=== PATIENT | female | born 1945 | race Caucasian/White ===

== ENCOUNTER 2018-03-03 17:13 | Emergency (ER) | payer OTHER ==
[2018-03-03] MEDS ORDERED: ALTEPLASE 100 MG/100 ML VIAL IV ONE ×2 (17:16→17:27)
[2018-03-03] MEDS ORDERED: NS 500 ML IV ONE ×2 (17:17→18:06)
--- NOTE | 2018-03-03 17:21 | EDPHY ---
H & P Time Seen by Provider: 03/03/18 17:15 HPI/ROS: HPI Stroke alert. 72-year-old female by ambulance. This patient was running/exercising at 4:50 p.m.. Bystanders noticed that she suddenly now down on her right side. She was complaining of weakness to her left side. EMS was called. On EMS arrival they noted complete hemiparesis left-sided both upper lower extremity with left- sided facial droop and left-sided neglect. Blood sugar per EMS was 112. Blood pressure 140's systolic. On arrival to the emergency department on initial narrow assessment, complete left-sided hemiparesis noted with left-sided facial droop and left-sided neglect. Airway stable. She was sent immediately for CT imaging of the brain. ROS: Constitutional: No fever, no chills. No weakness. Eyes: No discharge. No changes in vision. ENT: No sore throat. No nasal congestion or rhinorrhea. Respiratory: No cough. No shortness of breath. Cardiac: No chest pain, no palpitations. Gastrointestinal: No abdominal pain, no vomiting, no diarrhea. Genitourinary: No hematuria. No dysuria or increased frequency with urination. Musculoskeletal: No back pain. No neck pain. No myalgias or arthralgias. Skin: No rashes. Neurological: No headache. As above. Past medical history: Hypertension for which she takes lisinopril. 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 Social history: Nonsmoker. No alcohol. Here by herself. She has a daughter who lives nearby [facility]. Physical Exam: General Appearance: Eyes closed but open to voice. This patient is responding to questions appropriately but with slurred speech. This patient appears well- hydrated and well-nourished. Eyes: Pupils equal and round, small at 2 mm reactive to 1 mm, no pallor or injection. No lid edema, erythema or injection. ENT, Mouth: Mucous membranes are moist. The pharyngeal tissues are unremarkable. No edema or swelling. No asymmetry suggestive of abscess. No erythema or exudates. No tongue lacerations or abrasions. Respiratory: There are no retractions, lungs are clear to auscultation with good air movement bilaterally. Cardiovascular: Regular rate and rhythm. No murmur. Gastrointestinal: Abdomen is soft and nontender, no masses, bowel sounds normal. No focal tenderness at McBurney's point. No Chin sign. Neurological: Initial neurologic Assessment. GCS of 14. Complete left-sided hemiparesis and sensory loss with left-sided lower facial droop. Dysarthric speech. Skin: Warm and dry, no rashes. Musculoskeletal: Neck is supple and nontender. Extremities are symmetrical. All joints range without apparent pain or impingement. Psychiatric: No agitation. No depression. Database: EKG: EKG time is 5:40 p.m.; EKG shows a narrow complex normal sinus rhythm with a ventricular rate of 100. Subtle ST depressions in 2 3, AVF and V4 through V6. The MD, QRS, QT intervals are within normal limits. There are no ST-T wave changes indicative of ischemic or injury pattern. No evidence of right heart strain. Interpreted by me. Imaging: CT scan of head without contrast: Significant for junctional density at M2-M3. No bleed. Results discussed with staff radiologist Dr. Denzel boone. CT angiogram of head neck: As above. Results discussed with staff radiologist Dr. Denzel Boone. Chest x-ray AP portable; the cardiac mediastinal silhouette is unremarkable. No evidence of infiltrate or pneumothorax. No acute cardiopulmonary disease process noted. Interpreted by me. Procedures: Emergency department course: Immediately after initial assessment in the hallway the patient was sent for CT imaging as above. I-STAT obtained with normal creatinine. Systolic blood pressure in the 140s. Pulse oximetry mid 90s on room air oxygen. Secondary to initial findings on noncontrast CT a CT angiogram was obtained immediately following this study while the patient was still in the CT suite. Spoke with [facility] neurologist Dr. Lyn, initial history discussed. 5:20 p.m., patient back in room [address] emergency department[address] Dr. Lyn present remotely. Repeat neurologic Assessment she has some improvement in motor function of the left lower extremity. Neurologic Assessment is otherwise unchanged from above. After Dr. Lyn's initial evaluation and discussion of CT imaging, patient assess for tPA administration. No contraindications. Risks of giving medication discussed with her understanding. Patient started on tPA at 5:[address] Lyn recommended transfer to [facility] for further management and possible IR intervention. 6:00 p.m., air crew present at the bedside. Patient to be flown to [facility] shortly. Differential Diagnosis: The differential diagnosis on this patient includes but is not limited to acute right-sided thrombotic stroke with left-sided hemiparesis. Seizure, Jhon's paralysis, hemorrhagic stroke unlikely. This represents a partial list of diagnoses considered. These considerations are based on history, physical exam , past history, reassessment and diagnostic testing. Smoking Status: Never smoked Constitutional: Initial Vital Signs Temperature (C) 37.0 C 03/03/18 17:15 Heart Rate 100 03/03/18 17:15 Respiratory Rate 18 03/03/18 17:15 Blood Pressure 157/112 H 03/03/18 17:15 O2 Sat (%) 96 03/03/18 17:15 O2 Delivery Mode Room Air O2 (L/minute) 2 Allergies/Adverse Reactions: orange juice [oranges] Allergy (Verified 09/11/16 10:39) Home Medications: Medication Instructions Recorded Lisinopril [Zestril 10 mg (RX)] 10 mg PO DAILY 06/12/14 oxyCODONE/APAP 5/325 [Percocet 1 - 2 tab PO Q6-8PRN PRN #20 tab 06/12/14 5/325 (RX)] Aspirin 09/11/16 Medical Decision Making Critical Care Time: Emergency department critical care 47 minutes this time is exclusive of separately billable procedures time includes direct patient care, patient reassessment, coordination of patient care, interpretation of data, review of medical records, medical consultation, consultation with family and documentation of patient care. - Data Points Laboratory Results: Laboratory Results 03/03/18 17:15 03/03/18 17:17 03/03/18 17:18 POC Hgb 14.6 gm/dL gm/dL (12.6-16.3) POC Hct 43 % % (38-47) POC Sodium 144 mEq/L mEq/L (135-145) POC Potassium 4.3 mEq/L mEq/L (3.3-5.0) POC Chloride 109 mEq/L mEq/L (97-110) POC BUN 22 mg/dL mg/dL (7-23) POC Creatinine 1.0 mg/dL mg/dL (0.6-1.0) POC Glucose 101 mg/dL H mg/dL (70-100) Medications Given: Discontinued Medications Alteplase, Recombinant (Activase) 5.292 mg 0.09 mg/kg (5.292 mg) IV ONCE ONE PRN Reason: Protocol Stop: 03/03/18 17:28 Last Admin: 03/03/18 17:40 Dose: 5.292 mg Alteplase, Recombinant (Activase) 47.628 mg 0.81 mg/kg (47.628 mg) IV ONCE ONE PRN Reason: Protocol Stop: 03/03/18 17:28 Last Admin: 03/03/18 17:40 Dose: 47.628 mg Sodium Chloride (Ns) 500 mls @ 500 mls/hr IV EDNOW ONE PRN Reason: Protocol Stop: 03/03/18 18:16 Last Admin: 03/03/18 17:40 Dose: 500 mls Sodium Chloride (Ns) 500 mls @ 1,500 mls/hr IV ONCE ONE Stop: 03/03/18 18:25 Last Admin: 03/03/18 17:40 Dose: 500 mls Point of Care Test Results: 03/03/18 17:18 POC Sodium 144 POC Potassium 4.3 POC Chloride 109 POC BUN 22 POC Creatinine 1.0 POC Glucose 101 H Departure - Departure Disposition: Acute Care Hospital Not [facility] Clinical Impression: Acute ischemic stroke Referrals: Patient,NotPresent [Unknown] - As per Instructions
[2018-03-03] MEDS ORDERED: NS 50 ML IV ONE (17:27)
[2018-03-03] MEDS ORDERED: ALTEPLASE 1 MG/ML SYR IV ONE (17:27)
[2018-03-03 17:30] LABS: PLATELET COUNT 333 10^3/uL (150-400)
[2018-03-03 17:36] LABS: INR 0.95 (0.83-1.16); PROTIME(PATIENT) 12.9 SEC (12.0-15.0)
--- NOTE | 2018-03-03 17:43 | CPEKG ---
Heart Rate: 100 RR Interval: 600 P-R Interval: 176 QRSD Interval: 86 QT Interval: 368 QTC Interval: 475 P [place]: 54 QRS [place]: 47 T Wave [place]: -20 EKG Severity - ABNORMAL ECG - EKG Impression: SINUS TACHYCARDIA EKG Impression: NONSPECIFIC REPOL ABNORMALITY, DIFFUSE LEADS Electronically Signed By: Allen Friedman 03-Mar-2018 21:10:39
[2018-03-03 18:26] VITALS: BP 148/95
== END 2018-03-03 17:59 | disposition short-term general hospital (02) ==
LOC: EDUNIT#
DX: I63.9 Cerebral infarction, unspecified (principal); E86.9 Volume depletion, unspecified; I10 Essential (primary) hypertension; Z79.82 Long term (current) use of aspirin
CPT/HCPCS: 37195; 70450; 70496; 70498; 71045; 93005; 99291; J2997; 82947-QW

== ENCOUNTER 2019-05-10 09:45 | Emergency (ER) | payer OTHER | END 2019-05-10 11:50 | disposition home or self-care (01) ==